=== PATIENT | male | born 1945 | race Caucasian/White ===

== ENCOUNTER 2017-11-28 15:34 | Inpatient (IN) | payer MEDICARE, MEDICAID ==
[~2017-11-28] VITALS: Ht 177.8 cm; Wt 111.4 kg
[~2017-11-28 15:34] MED LIST: ADV50250 IH; ALBU8HFA PO; HYDR-3968 PO
[2017-11-28] MEDS ORDERED: methylPREDNISolone sod succ 125mg/2ml vial IV ONE (15:50)
[2017-11-28] MEDS ORDERED: normal saline 1000ML IV soln IV ONE (15:50)
[2017-11-28 16:47] LABS: BASOPHILS % (AUTO) 0.3 % (0-1); EOSINOPHILS # (AUTO) 0.1 X10'3 (0-0.9); EOSINOPHILS % (AUTO) 0.9 % (0-6); HEMATOCRIT 44.9 % (42.0-52.0); HEMOGLOBIN 15.1 g/dl (14.0-17.9); LYMPHOCYTES # (AUTO) 1.4 X10'3 (1.1-4.8); LYMPHOCYTES % (AUTO) 18.4 % (21-51); MEAN CORPUSCULAR HEMOGLOBIN 31.3 PG (27.0-31.0); MEAN CORPUSCULAR HGB CONC 33.6 % (33.0-36.5); MEAN PLATELET VOLUME 7.9 FL (7.4-10.4); MONOCYTES # (AUTO) 1.2 X10'3 (0-0.9); MONOCYTES % (AUTO) 15.6 % (2-12); NEUTROPHILS % (AUTO) 64.8 % (42-75); PLATELET COUNT 324 X10'3 (140-440); RED BLOOD COUNT 4.83 X10'6 (4.70-6.10); RED CELL DISTRIBUTION WIDTH 15.6 % (11.5-14.5); WHITE BLOOD COUNT 7.7 X10'3 (4.5-11.0)
[2017-11-28 17:25] LABS: ANISOCYTOSIS 1+; PLATELET ESTIMATE NORMAL; TOTAL CELLS COUNTED 100
[2017-11-28] MEDS ORDERED: mag hydrox/Alum hydrox/simeth 30ml oral suspension PO PRN (17:35)
[2017-11-28] MEDS ORDERED: acetaminophen 325mg tablet PO PRN (17:35)
[2017-11-28] MEDS ORDERED: HYDROcodone/acetaminophen 5mg/325mg tablet PO PRN ×2 (17:35→21:05)
[2017-11-28] MEDS ORDERED: magnesium hydroxide 30ml (MOM) UD suspension PO PRN (17:35)
[2017-11-28] MEDS ORDERED: ondansetron/PF 4mg/2ml inj IV PRN (17:35)
[2017-11-28] MEDS: CefTRIAXone 1 gm/50ml D5W ADV 50 ML IV SCH (18:08)
[2017-11-28] MEDS: normal saline 1000ml 1,000 ML IV SCH (18:09)
[2017-11-28] MEDS: HYDROcodone/acetaminophen 10/325mg tab PO PRN (19:59)
[2017-11-28 20:45] VITALS: BP 146/90
[2017-11-28] MEDS ORDERED: non-formulary drug (Hydrocodone Bit/Acetaminophen (Hydrocodon-Acetaminoph 7.5-325) 1 TAB) PO SCH (20:50)
[2017-11-28] MEDS ORDERED: non-formulary drug (albuterol inhaler (Pro-Air Inhaler) 0 PUFFS) PO PRN (20:50)
[2017-11-28] MEDS ORDERED: temazepam 15mg capsule PO PRN (21:00)
[2017-11-28] MEDS: pantoprazole 40 MG vial IV SCH (23:14)
[2017-11-28] MEDS: enoxaparin 40mg/0.4ml syringe SUBCUT SCH (23:15)
[2017-11-29] VITALS: BP 151/86
[2017-11-29 04:59] LABS: BASOPHILS % (AUTO) 0.3 % (0-1); EOSINOPHILS % (AUTO) 0.2 % (0-6); HEMATOCRIT 45.3 % (42.0-52.0); HEMOGLOBIN 14.9 g/dl (14.0-17.9); LYMPHOCYTES # (AUTO) 0.5 X10'3 (1.1-4.8); LYMPHOCYTES % (AUTO) 12.3 % (21-51); MEAN CORPUSCULAR HEMOGLOBIN 30.8 PG (27.0-31.0); MEAN CORPUSCULAR HGB CONC 32.9 % (33.0-36.5); MEAN CORPUSCULAR VOLUME 93.5 FL (78-98); MEAN PLATELET VOLUME 8.1 FL (7.4-10.4); MONOCYTES # (AUTO) 0.1 X10'3 (0-0.9); MONOCYTES % (AUTO) 2.3 % (2-12); NEUTROPHILS # (AUTO) 3.8 X10'3 (1.8-7.7); NEUTROPHILS % (AUTO) 84.9 % (42-75); PLATELET COUNT 329 X10'3 (140-440); RED BLOOD COUNT 4.85 X10'6 (4.70-6.10); WHITE BLOOD COUNT 4.4 X10'3 (4.5-11.0)
[2017-11-29 05:04] LABS: INR 1.1 INR; PROTHROMBIN TIME 10.9 SECONDS (9.0-12.0)
[2017-11-29 05:14] LABS: ALANINE AMINOTRANSFERASE 40 U/L (12-78); ALBUMIN/GLOBULIN RATIO 0.8 (1.1-1.5); ALKALINE PHOSPHATASE 76 IU/L (46-116); ANION GAP 6 (8-16); ASPARTATE AMINO TRANSFERASE 37 U/L (10-37); BILIRUBIN,TOTAL 0.3 MG/DL (0.1-1.0); BLOOD UREA NITROGEN 11 MG/DL (7-18); BUN/CREATININE RATIO 14.7 (5.4-32.0); CALCIUM 8.7 MG/DL (8.5-10.1); CHLORIDE 104 MMOL/L (99-107); CHOL/HDL RATIO 3.4 (0.00-4.99); CHOLESTEROL 149 MG/DL (0-200); CREATININE 0.75 MG/DL (0.60-1.10); GLUCOSE 168 MG/DL (70-104); HDL CHOLESTEROL 44 MG/DL (35-60); LDL CHOLESTEROL 95 MG/DL (50-100); MAGNESIUM 1.8 MG/DL (1.5-2.4); SODIUM 143 MMOL/L (135-145); TOTAL CARBON DIOXIDE 32.6 MMOL/L (24-32); TRIGLYCERIDES 78 MG/DL (20-135); eGFR > 90 ML/MIN
[2017-11-29] MEDS: pantoprazole 40 MG vial IV SCH (07:13)
[2017-11-29] MEDS: levoFLOXACIN-Levaquin 750MG/D5 150 ML IV SCH (07:13)
[2017-11-29] MEDS: enoxaparin 40mg/0.4ml syringe SUBCUT SCH (07:14)
[2017-11-29] MEDS: HYDROcodone/acetaminophen 10/325mg tab PO PRN ×2 (07:15→15:08)
[2017-11-29 07:38] VITALS: BP 148/86
[2017-11-29] MEDS ORDERED: non-formulary drug (Fluticasone/Salmeterol* (Advair 250-50 Diskus*) 1 INH) IH SCH (08:00)
[2017-11-29] MEDS: CefTRIAXone 1 gm/50ml D5W ADV 50 ML IV SCH (09:19)
[2017-11-29 11:34] VITALS: BP 136/83
[2017-11-29] MEDS: albuterol 2.5 MG/3 ML nebule NEB PRN (19:52)
[2017-11-29 20:00] VITALS: BP 150/83
[2017-11-30] VITALS: BP 120/67
[2017-11-30] MEDS: HYDROcodone/acetaminophen 10/325mg tab PO PRN ×4 (03:24→22:31)
[2017-11-30 05:23] LABS: BASOPHILS % (AUTO) 0.6 % (0-1); EOSINOPHILS % (AUTO) 0.3 % (0-6); HEMATOCRIT 44.8 % (42.0-52.0); HEMOGLOBIN 14.9 g/dl (14.0-17.9); LYMPHOCYTES # (AUTO) 1.6 X10'3 (1.1-4.8); LYMPHOCYTES % (AUTO) 18.7 % (21-51); MEAN CORPUSCULAR HEMOGLOBIN 30.9 PG (27.0-31.0); MEAN CORPUSCULAR HGB CONC 33.3 % (33.0-36.5); MEAN CORPUSCULAR VOLUME 92.6 FL (78-98); MEAN PLATELET VOLUME 8.1 FL (7.4-10.4); MONOCYTES # (AUTO) 1.2 X10'3 (0-0.9); MONOCYTES % (AUTO) 13.2 % (2-12); NEUTROPHILS # (AUTO) 5.9 X10'3 (1.8-7.7); NEUTROPHILS % (AUTO) 67.2 % (42-75); PLATELET COUNT 358 X10'3 (140-440); RED BLOOD COUNT 4.84 X10'6 (4.70-6.10); RED CELL DISTRIBUTION WIDTH 15.6 % (11.5-14.5); WHITE BLOOD COUNT 8.8 X10'3 (4.5-11.0)
[2017-11-30 05:30] LABS: PROTHROMBIN TIME 10.8 SECONDS (9.0-12.0)
[2017-11-30 05:45] LABS: ALANINE AMINOTRANSFERASE 35 U/L (12-78); ALBUMIN 3.1 G/DL (3.4-5.0); ALBUMIN/GLOBULIN RATIO 0.8 (1.1-1.5); ALKALINE PHOSPHATASE 76 IU/L (46-116); ANION GAP 7 (8-16); ASPARTATE AMINO TRANSFERASE 27 U/L (10-37); BILIRUBIN,TOTAL 0.3 MG/DL (0.1-1.0); BLOOD UREA NITROGEN 17 MG/DL (7-18); BUN/CREATININE RATIO 22.7 (5.4-32.0); CALCIUM 9.2 MG/DL (8.5-10.1); CHLORIDE 101 MMOL/L (99-107); CREATININE 0.75 MG/DL (0.60-1.10); GLUCOSE 107 MG/DL (70-104); MAGNESIUM 1.8 MG/DL (1.5-2.4); POTASSIUM 4.5 MMOL/L (3.5-5.1); SODIUM 143 MMOL/L (135-145); TOTAL CARBON DIOXIDE 34.9 MMOL/L (24-32); eGFR > 90 ML/MIN
[2017-11-30 08:00] VITALS: BP 139/86
[2017-11-30] MEDS: pantoprazole 40mg Tablet.DR PO SCH (08:28)
[2017-11-30] MEDS: levoFLOXACIN-Levaquin 750MG/D5 150 ML IV SCH (08:28)
[2017-11-30] MEDS: enoxaparin 40mg/0.4ml syringe SUBCUT SCH (08:29)
[2017-11-30] MEDS: cefTRIAXone 1g/NS 100ml IVPB 100 ML IV SCH (11:15)
[2017-11-30 11:30] VITALS: BP 129/82
[2017-11-30] MEDS ORDERED: bacitracin 15gm ointment TP ONE (12:00)
[2017-11-30] MEDS: LORazepam 0.5 MG tablet PO PRN (15:44)
[2017-11-30] MEDS: albuterol 2.5 MG/3 ML nebule NEB PRN ×2 (15:44→19:35)
[2017-11-30] MEDS: lactobacillus rhamnosus 10,000 MMU CELLS/CAPSULE PO SCH (17:27)
[2017-11-30 20:00] VITALS: BP 149/90
[2017-11-30] MEDS: normal saline 1000ml 1,000 ML IV SCH (22:31)
[2017-12-01] VITALS: BP 114/69
[2017-12-01] MEDS: LORazepam 0.5 MG tablet PO PRN ×2 (03:56→12:22)
[2017-12-01 05:12] LABS: BASOPHILS # (AUTO) 0.1 X10'3 (0-0.2); BASOPHILS % (AUTO) 1.5 % (0-1); EOSINOPHILS # (AUTO) 0.1 X10'3 (0-0.9); EOSINOPHILS % (AUTO) 1.2 % (0-6); HEMATOCRIT 44.7 % (42.0-52.0); HEMOGLOBIN 15.1 g/dl (14.0-17.9); LYMPHOCYTES # (AUTO) 1.5 X10'3 (1.1-4.8); LYMPHOCYTES % (AUTO) 18.2 % (21-51); MEAN CORPUSCULAR HEMOGLOBIN 31.1 PG (27.0-31.0); MEAN CORPUSCULAR HGB CONC 33.7 % (33.0-36.5); MEAN CORPUSCULAR VOLUME 92.1 FL (78-98); MEAN PLATELET VOLUME 7.7 FL (7.4-10.4); MONOCYTES # (AUTO) 1.2 X10'3 (0-0.9); MONOCYTES % (AUTO) 14.3 % (2-12); NEUTROPHILS # (AUTO) 5.4 X10'3 (1.8-7.7); NEUTROPHILS % (AUTO) 64.8 % (42-75); PLATELET COUNT 354 X10'3 (140-440); RED BLOOD COUNT 4.85 X10'6 (4.70-6.10); WHITE BLOOD COUNT 8.4 X10'3 (4.5-11.0)
[2017-12-01 05:28] LABS: ALANINE AMINOTRANSFERASE 36 U/L (12-78); ALBUMIN 2.9 G/DL (3.4-5.0); ALBUMIN/GLOBULIN RATIO 0.8 (1.1-1.5); ALKALINE PHOSPHATASE 65 IU/L (46-116); ANION GAP 4 (8-16); ASPARTATE AMINO TRANSFERASE 21 U/L (10-37); BILIRUBIN,TOTAL 0.4 MG/DL (0.1-1.0); BLOOD UREA NITROGEN 16 MG/DL (7-18); BUN/CREATININE RATIO 21.9 (5.4-32.0); CALCIUM 8.3 MG/DL (8.5-10.1); CHLORIDE 100 MMOL/L (99-107); CREATININE 0.73 MG/DL (0.60-1.10); GLUCOSE 102 MG/DL (70-104); MAGNESIUM 1.7 MG/DL (1.5-2.4); POTASSIUM 3.8 MMOL/L (3.5-5.1); SODIUM 141 MMOL/L (135-145); TOTAL CARBON DIOXIDE 37.4 MMOL/L (24-32); TOTAL PROTEIN 6.4 G/DL (6.4-8.2); eGFR > 90 ML/MIN
[2017-12-01 05:44] LABS: INR 1.1 INR; PROTHROMBIN TIME 11.1 SECONDS (9.0-12.0)
[2017-12-01] MEDS: albuterol 2.5 MG/3 ML nebule NEB PRN (07:27)
[2017-12-01 07:54] VITALS: BP 140/97
[2017-12-01] MEDS: cefTRIAXone 1g/NS 100ml IVPB 100 ML IV SCH (08:27)
[2017-12-01] MEDS: pantoprazole 40mg Tablet.DR PO SCH (08:27)
[2017-12-01] MEDS: HYDROcodone/acetaminophen 10/325mg tab PO PRN ×4 (08:27→22:39)
[2017-12-01] MEDS: lactobacillus rhamnosus 10,000 MMU CELLS/CAPSULE PO SCH ×2 (08:27→16:27)
[2017-12-01] MEDS: enoxaparin 40mg/0.4ml syringe SUBCUT SCH (08:28)
[2017-12-01 12:12] VITALS: BP 142/95
[2017-12-01] MEDS: levoFLOXACIN 750MG TABLET PO SCH (12:22)
[2017-12-01 20:00] VITALS: BP 118/20
[2017-12-02] VITALS: BP 134/89
[2017-12-02] MEDS: HYDROcodone/acetaminophen 10/325mg tab PO PRN ×4 (04:26→21:38)
[2017-12-02 05:39] LABS: BASOPHILS # (AUTO) 0.1 X10'3 (0-0.2); BASOPHILS % (AUTO) 0.6 % (0-1); EOSINOPHILS # (AUTO) 0.1 X10'3 (0-0.9); EOSINOPHILS % (AUTO) 1.5 % (0-6); HEMATOCRIT 48.8 % (42.0-52.0); LYMPHOCYTES # (AUTO) 1.3 X10'3 (1.1-4.8); LYMPHOCYTES % (AUTO) 15.1 % (21-51); MEAN CORPUSCULAR HEMOGLOBIN 30.7 PG (27.0-31.0); MEAN CORPUSCULAR HGB CONC 32.8 % (33.0-36.5); MEAN CORPUSCULAR VOLUME 93.6 FL (78-98); MEAN PLATELET VOLUME 7.9 FL (7.4-10.4); MONOCYTES # (AUTO) 1.4 X10'3 (0-0.9); MONOCYTES % (AUTO) 16.5 % (2-12); NEUTROPHILS # (AUTO) 5.8 X10'3 (1.8-7.7); NEUTROPHILS % (AUTO) 66.3 % (42-75); PLATELET COUNT 361 X10'3 (140-440); RED BLOOD COUNT 5.21 X10'6 (4.70-6.10); RED CELL DISTRIBUTION WIDTH 15.6 % (11.5-14.5); WHITE BLOOD COUNT 8.8 X10'3 (4.5-11.0)
[2017-12-02 05:47] LABS: INR 1.1 INR; PROTHROMBIN TIME 11.2 SECONDS (9.0-12.0)
[2017-12-02 06:03] LABS: ALANINE AMINOTRANSFERASE 36 U/L (12-78); ALBUMIN 2.9 G/DL (3.4-5.0); ALBUMIN/GLOBULIN RATIO 0.8 (1.1-1.5); ALKALINE PHOSPHATASE 65 IU/L (46-116); ANION GAP 3 (8-16); ASPARTATE AMINO TRANSFERASE 22 U/L (10-37); BILIRUBIN,TOTAL 0.5 MG/DL (0.1-1.0); BLOOD UREA NITROGEN 16 MG/DL (7-18); BUN/CREATININE RATIO 24.2 (5.4-32.0); CALCIUM 8.7 MG/DL (8.5-10.1); CHLORIDE 100 MMOL/L (99-107); CREATININE 0.66 MG/DL (0.60-1.10); GLUCOSE 115 MG/DL (70-104); MAGNESIUM 1.9 MG/DL (1.5-2.4); POTASSIUM 3.9 MMOL/L (3.5-5.1); SODIUM 139 MMOL/L (135-145); TOTAL CARBON DIOXIDE 35.9 MMOL/L (24-32); TOTAL PROTEIN 6.6 G/DL (6.4-8.2); eGFR > 90 ML/MIN
[2017-12-02 08:02] VITALS: BP 136/80
[2017-12-02] MEDS: pantoprazole 40mg Tablet.DR PO SCH (09:09)
[2017-12-02] MEDS: lactobacillus rhamnosus 10,000 MMU CELLS/CAPSULE PO SCH ×2 (09:09→16:40)
[2017-12-02] MEDS: cefTRIAXone 1g/NS 100ml IVPB 100 ML IV SCH (09:10)
[2017-12-02] MEDS: enoxaparin 40mg/0.4ml syringe SUBCUT SCH (09:10)
[2017-12-02] MEDS: levoFLOXACIN 750MG TABLET PO SCH (10:43)
[2017-12-02] MEDS: vancomycin/NS 1 GM ADD-VANTAGE 250 ML IV SCH ×2 (10:43→12:44)
[2017-12-02 11:30] VITALS: BP 110/73
[2017-12-02] MEDS: normal saline 1000ml 1,000 ML IV SCH (17:26)
[2017-12-02 20:00] VITALS: BP 128/81
[2017-12-03] VITALS: BP 119/79
[2017-12-03] MEDS: HYDROcodone/acetaminophen 10/325mg tab PO PRN ×3 (02:56→19:38)
[2017-12-03 05:53] LABS: BASOPHILS % (AUTO) 0.3 % (0-1); EOSINOPHILS # (AUTO) 0.2 X10'3 (0-0.9); EOSINOPHILS % (AUTO) 1.7 % (0-6); HEMATOCRIT 46.1 % (42.0-52.0); HEMOGLOBIN 15.5 g/dl (14.0-17.9); LYMPHOCYTES # (AUTO) 1.2 X10'3 (1.1-4.8); MEAN CORPUSCULAR HEMOGLOBIN 30.7 PG (27.0-31.0); MEAN CORPUSCULAR HGB CONC 33.6 % (33.0-36.5); MEAN CORPUSCULAR VOLUME 91.4 FL (78-98); MEAN PLATELET VOLUME 7.5 FL (7.4-10.4); MONOCYTES # (AUTO) 1.5 X10'3 (0-0.9); MONOCYTES % (AUTO) 15.3 % (2-12); NEUTROPHILS # (AUTO) 7.1 X10'3 (1.8-7.7); NEUTROPHILS % (AUTO) 70.7 % (42-75); PLATELET COUNT 369 X10'3 (140-440); RED BLOOD COUNT 5.04 X10'6 (4.70-6.10); RED CELL DISTRIBUTION WIDTH 15.6 % (11.5-14.5)
[2017-12-03 06:07] LABS: INR 1.1 INR; PROTHROMBIN TIME 11.1 SECONDS (9.0-12.0)
[2017-12-03 06:38] LABS: ALANINE AMINOTRANSFERASE 32 U/L (12-78); ALBUMIN 2.7 G/DL (3.4-5.0); ALBUMIN/GLOBULIN RATIO 0.8 (1.1-1.5); ALKALINE PHOSPHATASE 62 IU/L (46-116); ANION GAP 7 (8-16); ASPARTATE AMINO TRANSFERASE 19 U/L (10-37); BILIRUBIN,TOTAL 0.5 MG/DL (0.1-1.0); BLOOD UREA NITROGEN 15 MG/DL (7-18); BUN/CREATININE RATIO 20.5 (5.4-32.0); CALCIUM 8.4 MG/DL (8.5-10.1); CHLORIDE 101 MMOL/L (99-107); CREATININE 0.73 MG/DL (0.60-1.10); GLUCOSE 103 MG/DL (70-104); MAGNESIUM 1.7 MG/DL (1.5-2.4); POTASSIUM 4.2 MMOL/L (3.5-5.1); SODIUM 140 MMOL/L (135-145); TOTAL CARBON DIOXIDE 32.4 MMOL/L (24-32); TOTAL PROTEIN 6.2 G/DL (6.4-8.2); eGFR > 90 ML/MIN
[2017-12-03 07:12] VITALS: BP 114/72
[2017-12-03] MEDS: albuterol 2.5 MG/3 ML nebule NEB PRN ×2 (07:32→19:03)
[2017-12-03] MEDS: pantoprazole 40mg Tablet.DR PO SCH (07:56)
[2017-12-03] MEDS: lactobacillus rhamnosus 10,000 MMU CELLS/CAPSULE PO SCH ×2 (07:56→19:38)
[2017-12-03] MEDS: enoxaparin 40mg/0.4ml syringe SUBCUT SCH (07:58)
[2017-12-03] MEDS: levoFLOXACIN 750MG TABLET PO SCH (10:08)
[2017-12-03] MEDS: cefTRIAXone 1g/NS 100ml IVPB 100 ML IV SCH (10:09)
[2017-12-03] MEDS ORDERED: VANCOMYCIN LEVEL IV ONE (10:30)
[2017-12-03 11:35] VITALS: BP 105/53
[2017-12-03 20:08] VITALS: BP 115/54
[2017-12-04] VITALS: BP 138/77
[2017-12-04] MEDS: HYDROcodone/acetaminophen 10/325mg tab PO PRN ×4 (02:24→23:17)
[2017-12-04 07:22] VITALS: BP 122/81
[2017-12-04] MEDS: pantoprazole 40mg Tablet.DR PO SCH (07:42)
[2017-12-04] MEDS: lactobacillus rhamnosus 10,000 MMU CELLS/CAPSULE PO SCH ×2 (07:42→17:37)
[2017-12-04] MEDS: cefTRIAXone 1g/NS 100ml IVPB 100 ML IV SCH (07:43)
[2017-12-04] MEDS: enoxaparin 40mg/0.4ml syringe SUBCUT SCH (07:44)
[2017-12-04 11:00] VITALS: BP 136/72
[2017-12-04] MEDS: levoFLOXACIN 750MG TABLET PO SCH (12:37)
[2017-12-04] MEDS ORDERED: LINE600T36 PO (15:55)
[2017-12-04] MEDS ORDERED: lactobacillus rhamnosus 10,000 MMU CELLS/CAPSULE PO SCH (17:30)
[2017-12-04] MEDS: normal saline 1000ml 1,000 ML IV SCH (17:32)
[2017-12-04 18:30] VITALS: BP 111/60
[2017-12-04 23:00] VITALS: BP 119/68
[2017-12-05] MEDS: HYDROcodone/acetaminophen 10/325mg tab PO PRN ×3 (05:04→15:39)
[2017-12-05 07:30] VITALS: BP 129/66
[2017-12-05] MEDS: lactobacillus rhamnosus 10,000 MMU CELLS/CAPSULE PO SCH (08:14)
[2017-12-05] MEDS: pantoprazole 40mg Tablet.DR PO SCH (08:14)
[2017-12-05] MEDS: cefTRIAXone 1g/NS 100ml IVPB 100 ML IV SCH (08:16)
[2017-12-05] MEDS: enoxaparin 40mg/0.4ml syringe SUBCUT SCH (08:16)
[2017-12-05] MEDS: levoFLOXACIN 750MG TABLET PO SCH (11:15)
[2017-12-05 11:52] VITALS: BP 131/72
[2017-12-05] MEDS ORDERED: LACT1CAP26 PO (15:00)
[2017-12-05] MEDS ORDERED: PRED10TA23 PO (15:04)
[2017-12-05] MEDS ORDERED: predniSONE 20 mg tablet PO ONE (15:15)
== END 2017-12-05 16:48 | disposition home or self-care (01) | DRG 177 ==
LOC: ER 15:35 → ED HOLD 17:32 → SUR 3N 21:00
PROVIDERS: ADMIT Family Medicine; ATTEND Family Medicine
DX: J15.212 Pneumonia due to Methicillin resistant Staphylococcus aureus (principal); J96.01 Acute respiratory failure with hypoxia; J44.1 Chronic obstructive pulmonary disease with (acute) exacerbation; J44.0 Chronic obstructive pulmonary disease with (acute) lower respiratory infection; E66.9 Obesity, unspecified; G47.9 Sleep disorder, unspecified; I48.91 Unspecified atrial fibrillation; F41.9 Anxiety disorder, unspecified; Z99.81 Dependence on supplemental oxygen; Z88.6 Allergy status to analgesic agent; Z79.01 Long term (current) use of anticoagulants; Z87.891 Personal history of nicotine dependence; Z68.35 Body mass index [BMI] 35.0-35.9, adult
CPT/HCPCS: 36415; 71045; 80053; 80061; 80202; 83605; 83735; 83880; 84484; 85025; 85610; 87040; 87070; 87077; 87186; 92616; 93005; 93306; 94640; 94760; 96361; 96374; 97116; 99285; A6258; C9113; J0696; J1650; J1956; J2405; J2930; J3370; J7030; J7512

== ENCOUNTER 2018-07-11 11:59 | Inpatient (IN) | payer MEDICARE, MEDICAID ==
[~2018-07-11] VITALS: Ht 177.8 cm; Wt 132.6 kg
[~2018-07-11 11:59] MED LIST changes: +LACT1CAP26 PO
[2018-07-11] MEDS ORDERED: albuterol 2.5 MG/3 ML nebule CONTNEB PRN (12:30)
[2018-07-11] MEDS ORDERED: levoFLOXACIN-Levaquin 750MG/D5 150 ML IV ONE (12:30)
[2018-07-11 12:56] LABS: BASOPHILS % (AUTO) 0.3 % (0-1); EOSINOPHILS # (AUTO) 0.7 X10'3 (0-0.9); EOSINOPHILS % (AUTO) 9.4 % (0-6); HEMATOCRIT 42.3 % (42.0-52.0); HEMOGLOBIN 13.9 g/dl (14.0-17.9); LYMPHOCYTES # (AUTO) 0.7 X10'3 (1.1-4.8); LYMPHOCYTES % (AUTO) 9.9 % (21-51); MEAN CORPUSCULAR HEMOGLOBIN 31.4 PG (27.0-31.0); MEAN CORPUSCULAR HGB CONC 32.8 % (33.0-36.5); MEAN CORPUSCULAR VOLUME 95.7 FL (78-98); MEAN PLATELET VOLUME 7.9 FL (7.4-10.4); MONOCYTES # (AUTO) 0.8 X10'3 (0-0.9); MONOCYTES % (AUTO) 10.4 % (2-12); NEUTROPHILS # (AUTO) 5.3 X10'3 (1.8-7.7); PLATELET COUNT 258 X10'3 (140-440); RED BLOOD COUNT 4.43 X10'6 (4.70-6.10); RED CELL DISTRIBUTION WIDTH 15.6 % (11.5-14.5); WHITE BLOOD COUNT 7.5 X10'3 (4.5-11.0)
[2018-07-11 13:07] LABS: INR 1.1 INR; PARTIAL THROMBOPLASTIN TIME 28 SECONDS (22-32); PROTHROMBIN TIME 11.4 SECONDS (9.0-12.0)
[2018-07-11 13:12] LABS: ALANINE AMINOTRANSFERASE 35 U/L (12-78); ALBUMIN 3.3 G/DL (3.4-5.0); ALBUMIN/GLOBULIN RATIO 0.9 (1.1-1.5); ALKALINE PHOSPHATASE 87 IU/L (46-116); ANION GAP 6 (8-16); ASPARTATE AMINO TRANSFERASE 34 U/L (10-37); BILIRUBIN,TOTAL 0.4 MG/DL (0.1-1.0); BLOOD UREA NITROGEN 15 MG/DL (7-18); BUN/CREATININE RATIO 20.5 (5.4-32.0); CALCIUM 8.6 MG/DL (8.5-10.1); CHLORIDE 100 MMOL/L (99-107); CREATININE 0.73 MG/DL (0.60-1.10); GLUCOSE 103 MG/DL (70-104); POTASSIUM 4.3 MMOL/L (3.5-5.1); SODIUM 141 MMOL/L (135-145); TOTAL CARBON DIOXIDE 34.7 MMOL/L (24-32); TOTAL PROTEIN 6.8 G/DL (6.4-8.2); eGFR > 90 ML/MIN
[2018-07-11 13:18] LABS: MAGNESIUM 1.9 MG/DL (1.5-2.4)
[2018-07-11 13:30] LABS: ABG BASE EXCESS 8.7 mmol/L (-2.0-3.0); ABG HCO3 36.8 mmol/L (22.0-26.0); ABG OXYGEN SATURATION 94.1 % (95-98); ABG PH (T) 7.358 (7.350-7.450); ABG PO2 (T) 71.8 mmHg (83-108); FCOHb 3.1 % (0.5-1.5); FLOW 4 L/min; FMetHb 0.3 % (0.3-1.12); FO2Hb 90.9 % (94-100); TOTAL HEMOGLOBIN 14.2 G/dl (14.0-18.0)
[2018-07-11] MEDS ORDERED: furosemide 40mg/4ml inj IV ONE (13:35)
[2018-07-11 14:44] LABS: CLARITY,URINE CLEAR (Clear); COLOR,URINE YELLOW (Yellow); GLUCOSE, URINE NEGATIVE (Neg); KETONES,URINE NEGATIVE (Neg); LEUKOCYTE ESTERASE ,URINE NEGATIVE (Neg); NITRITES, URINE NEGATIVE (Neg); OCCULT BLOOD,URINE NEGATIVE (Neg); PROTEIN,URINE NEGATIVE (Neg); UROBILINOGEN,URINE 0.2 E.U/dL (0.2-1.0)
[2018-07-11 15:00] LABS: UA COLLECTION TYPE VOIDED
[2018-07-11] MEDS ORDERED: ipratropium/albuterol 3ml nebule NEB PRN (15:25)
[2018-07-11] MEDS ORDERED: ondansetron/PF 4mg/2ml inj IV PRN (15:25)
[2018-07-11] MEDS ORDERED: potassium Cl 20 mEq SR tablet PO PRN ×2 (15:25)
[2018-07-11] MEDS ORDERED: magnesium Cl slow-release 64mg tablet PO PRN (15:25)
[2018-07-11] MEDS ORDERED: magnesium 4gm in 100ml NS 100 ML IV PRN (15:25)
[2018-07-11] MEDS ORDERED: magnesium 1gm/100ml D5W IVPB 100 ML IV PRN (15:25)
[2018-07-11] MEDS ORDERED: magnesium hydroxide 30ml (MOM) UD suspension PO PRN (15:25)
[2018-07-11] MEDS ORDERED: acetaminophen 325mg tablet PO PRN ×2 (15:25)
[2018-07-11] MEDS ORDERED: mag hydrox/Alum hydrox/simeth 30ml oral suspension PO PRN (15:25)
[2018-07-11] MEDS ORDERED: potassium Cl 40MEQ/NS 500ml 500 ML IV PRN ×2 (15:25)
[2018-07-11] MEDS ORDERED: TIOT18CA3 INH (15:31)
[2018-07-11] MEDS ORDERED: LYR75C PO (15:31)
[2018-07-11] MEDS: CefTRIAXone/D5W-Rocephin 1gm 50 ML IV SCH (16:59)
[2018-07-11] MEDS: enoxaparin 40mg/0.4ml syringe SUBCUT SCH (17:00)
[2018-07-11] MEDS ORDERED: CefTRIAXone/D5W-Rocephin 1gm 50 ML IV ONE (17:00)
[2018-07-11] MEDS ORDERED: enoxaparin 40mg/0.4ml syringe SUBCUT ONE (17:05)
[2018-07-11 17:50] VITALS: BP 161/103
[2018-07-11 19:00] VITALS: BP 150/95
[2018-07-11] MEDS: ipratropium/albuterol 3ml nebule NEB SCH (19:45)
[2018-07-11] MEDS: furosemide 40mg/4ml inj IV SCH (19:49)
[2018-07-11] MEDS: temazepam 15mg capsule PO PRN (22:25)
[2018-07-11 23:00] VITALS: BP 127/67
[2018-07-12 03:00] VITALS: BP 123/69
[2018-07-12 06:04] LABS: ALBUMIN 3.3 G/DL (3.4-5.0); ANION GAP 0 (8-16); BLOOD UREA NITROGEN 14 MG/DL (7-18); BUN/CREATININE RATIO 16.9 (5.4-32.0); CALCIUM 9.2 MG/DL (8.5-10.1); CHLORIDE 100 MMOL/L (99-107); CHOL/HDL RATIO 2.6 (0.00-4.99); CHOLESTEROL 135 MG/DL (0-200); CREATININE 0.83 MG/DL (0.60-1.10); GLUCOSE 116 MG/DL (70-104); HDL CHOLESTEROL 51 MG/DL (35-60); LDL CHOLESTEROL 72 MG/DL (50-100); MAGNESIUM 2.1 MG/DL (1.5-2.4); POTASSIUM 5.1 MMOL/L (3.5-5.1); SODIUM 142 MMOL/L (135-145); TRIGLYCERIDES 99 MG/DL (20-135); TROPONIN I 0.06 NG/ML (0.0-0.05); eGFR > 90 ML/MIN
[2018-07-12 06:07] LABS: HEMOGLOBIN 13.7 g/dl (14.0-17.9); MEAN CORPUSCULAR HGB CONC 31.8 % (33.0-36.5); MEAN CORPUSCULAR VOLUME 94.2 FL (78-98); MEAN PLATELET VOLUME 8.3 FL (7.4-10.4); PLATELET COUNT 258 X10'3 (140-440); RED BLOOD COUNT 4.57 X10'6 (4.70-6.10); RED CELL DISTRIBUTION WIDTH 15.1 % (11.5-14.5); WHITE BLOOD COUNT 7.9 X10'3 (4.5-11.0)
[2018-07-12 06:54] LABS: TOTAL CARBON DIOXIDE 41.7 MMOL/L (24-32)
[2018-07-12 07:00] VITALS: BP 144/84
[2018-07-12] MEDS: ipratropium/albuterol 3ml nebule NEB SCH ×5 (07:00→23:00)
[2018-07-12] MEDS: K and/or MAG REPLACEMENT MC SCH (08:00)
[2018-07-12] MEDS: enoxaparin 40mg/0.4ml syringe SUBCUT SCH (08:38)
[2018-07-12] MEDS: pregabalin 75mg capsule PO SCH (08:38)
[2018-07-12] MEDS: aspirin 81mg tablet.DR PO SCH (08:38)
[2018-07-12] MEDS: furosemide 40mg/4ml inj IV SCH ×2 (08:39→20:00)
[2018-07-12] MEDS: CefTRIAXone/D5W-Rocephin 1gm 50 ML IV SCH (08:39)
[2018-07-12 11:54] VITALS: BP 151/98
[2018-07-12] MEDS: LORazepam 2 mg/ml vial IV PRN (13:29)
[2018-07-12 15:00] VITALS: BP 136/72
[2018-07-12 18:00] VITALS: BP 140/69
[2018-07-12] MEDS: methylPREDNISolone sod succ 125mg/2ml vial IV SCH (19:11)
[2018-07-12] MEDS: temazepam 15mg capsule PO PRN (21:56)
[2018-07-12 22:00] VITALS: BP 109/76
[2018-07-13] MEDS: LORazepam 2 mg/ml vial IV PRN ×2 (00:30→05:31)
[2018-07-13 02:00] VITALS: BP 147/87
[2018-07-13] MEDS: methylPREDNISolone sod succ 125mg/2ml vial IV SCH ×2 (02:09→08:00)
[2018-07-13 05:09] LABS: HEMATOCRIT 47.6 % (42.0-52.0); HEMOGLOBIN 15.4 g/dl (14.0-17.9); MEAN CORPUSCULAR HEMOGLOBIN 30.7 PG (27.0-31.0); MEAN CORPUSCULAR HGB CONC 32.2 % (33.0-36.5); MEAN CORPUSCULAR VOLUME 95.3 FL (78-98); MEAN PLATELET VOLUME 8.4 FL (7.4-10.4); PLATELET COUNT 283 X10'3 (140-440); RED CELL DISTRIBUTION WIDTH 15.3 % (11.5-14.5); WHITE BLOOD COUNT 6.2 X10'3 (4.5-11.0)
[2018-07-13 05:32] LABS: ALBUMIN 3.6 G/DL (3.4-5.0); ANION GAP 4 (8-16); BLOOD UREA NITROGEN 18 MG/DL (7-18); BUN/CREATININE RATIO 25.7 (5.4-32.0); CALCIUM 8.8 MG/DL (8.5-10.1); CHLORIDE 99 MMOL/L (99-107); GLUCOSE 167 MG/DL (70-104); MAGNESIUM 2.2 MG/DL (1.5-2.4); POTASSIUM 4.8 MMOL/L (3.5-5.1); SODIUM 140 MMOL/L (135-145); TOTAL CARBON DIOXIDE 37.4 MMOL/L (24-32); eGFR > 90 ML/MIN
[2018-07-13 07:13] VITALS: BP 137/91
[2018-07-13] MEDS: aspirin 81mg tablet.DR PO SCH (08:00)
[2018-07-13] MEDS: K and/or MAG REPLACEMENT MC SCH (08:00)
[2018-07-13] MEDS: furosemide 40mg/4ml inj IV SCH (08:00)
[2018-07-13] MEDS ORDERED: nicotine 21mg patch - 24 hr TD SCH (08:00)
[2018-07-13] MEDS: pregabalin 75mg capsule PO SCH (08:00)
[2018-07-13] MEDS: CefTRIAXone/D5W-Rocephin 1gm 50 ML IV SCH (08:00)
[2018-07-13] MEDS: enoxaparin 40mg/0.4ml syringe SUBCUT SCH (08:01)
[2018-07-13] MEDS: ipratropium/albuterol 3ml nebule NEB SCH ×2 (08:05→11:37)
[2018-07-13 11:34] VITALS: BP 149/101
[2018-07-13] MEDS ORDERED: AZI25OT PO (11:41)
[2018-07-13] MEDS ORDERED: FURO-150 PO (11:41)
[2018-07-13] MEDS ORDERED: METO25TA6 PO (15:37)
[2018-07-13] MEDS ORDERED: LISI-604 PO (15:37)
== END 2018-07-13 14:10 | disposition home or self-care (01) | DRG 291 ==
LOC: ER 11:59 → OBSVTOIN 15:23 → ED HOLD 15:23 → PCU 3S 17:29
PROVIDERS: ADMIT Family Medicine; ATTEND Internal Medicine
PROC: BW211ZZ Computerized Tomography (CT Scan) of Abdomen and Pelvis using Low Osmolar Contrast (ICD-10-PCS; principal; 2018-07-11)
DX: I50.23 Acute on chronic systolic (congestive) heart failure (principal); J96.21 Acute and chronic respiratory failure with hypoxia; J44.1 Chronic obstructive pulmonary disease with (acute) exacerbation; Z68.41 Body mass index [BMI] 40.0-44.9, adult; E87.2 Acidosis; E66.9 Obesity, unspecified; F17.210 Nicotine dependence, cigarettes, uncomplicated; I71.4 Abdominal aortic aneurysm, without rupture; Z99.81 Dependence on supplemental oxygen; Z90.49 Acquired absence of other specified parts of digestive tract; Z88.6 Allergy status to analgesic agent; Z79.899 Other long term (current) drug therapy; Z71.6 Tobacco abuse counseling
CPT/HCPCS: 36415; 36600; 71045; 74176; 80048; 80053; 80061; 81003; 82803; 83605; 83735; 83880; 84145; 84484; 85018; 85025; 85027; 85610; 85730; 87040; 87070; 93005; 93306; 94640; 94644; 94760; 96365; 96375; 97110; 97116; 97161; 97530; 99285; A4315; A4620; A6212; J0696; J1650; J1940; J1956; J2060; J2930; J7030

== ENCOUNTER 2018-07-31 11:32 | Emergency (ER) | payer MEDICARE, MEDICAID ==
[~2018-07-31] VITALS: Ht 177.8 cm; Wt 127.0 kg
[~2018-07-31 11:32] MED LIST changes: +AZI25OT PO; +FURO-150 PO; -LACT1CAP26 PO; +LISI-604 PO; +LYR75C PO; +METO25TA6 PO; +TIOT18CA3 INH
[2018-07-31] MEDS ORDERED: normal saline 1000ML IV soln IVB ONE (11:55)
[2018-07-31] MEDS: morphine 2 MG/ML inj. syringe IV PRN ×2 (12:01→12:25)
[2018-07-31] MEDS ORDERED: adenosine 3mg/ml 2ml vial IV ONE ×2 (12:10)
[2018-07-31 12:11] LABS: BASOPHILS % (AUTO) 0.2 % (0-1); EOSINOPHILS % (AUTO) 0.2 % (0-6); HEMATOCRIT 46.8 % (42.0-52.0); HEMOGLOBIN 15.2 g/dl (14.0-17.9); LYMPHOCYTES # (AUTO) 0.8 X10'3 (1.1-4.8); MEAN CORPUSCULAR HEMOGLOBIN 30.8 PG (27.0-31.0); MEAN CORPUSCULAR HGB CONC 32.5 % (33.0-36.5); MEAN CORPUSCULAR VOLUME 94.7 FL (78-98); MEAN PLATELET VOLUME 8.4 FL (7.4-10.4); MONOCYTES # (AUTO) 0.9 X10'3 (0-0.9); MONOCYTES % (AUTO) 7.7 % (2-12); NEUTROPHILS # (AUTO) 10.2 X10'3 (1.8-7.7); NEUTROPHILS % (AUTO) 84.9 % (42-75); PLATELET COUNT 301 X10'3 (140-440); RED BLOOD COUNT 4.94 X10'6 (4.70-6.10); RED CELL DISTRIBUTION WIDTH 14.9 % (11.5-14.5)
[2018-07-31 12:14] LABS: INR 1.1 INR; PARTIAL THROMBOPLASTIN TIME 30 SECONDS (22-32); PROTHROMBIN TIME 11.5 SECONDS (9.0-12.0)
[2018-07-31 12:17] LABS: ALANINE AMINOTRANSFERASE 33 U/L (12-78); ALBUMIN 3.6 G/DL (3.4-5.0); ALBUMIN/GLOBULIN RATIO 0.9 (1.1-1.5); ALKALINE PHOSPHATASE 87 IU/L (46-116); ANION GAP 7 (8-16); ASPARTATE AMINO TRANSFERASE 43 U/L (10-37); BILIRUBIN,TOTAL 0.8 MG/DL (0.1-1.0); BLOOD UREA NITROGEN 23 MG/DL (7-18); BUN/CREATININE RATIO 17.6 (5.4-32.0); CALCIUM 9.3 MG/DL (8.5-10.1); CHLORIDE 99 MMOL/L (99-107); CREATININE 1.31 MG/DL (0.60-1.10); GLUCOSE 121 MG/DL (70-104); POTASSIUM 4.7 MMOL/L (3.5-5.1); SODIUM 138 MMOL/L (135-145); TOTAL CARBON DIOXIDE 31.8 MMOL/L (24-32); TOTAL PROTEIN 7.5 G/DL (6.4-8.2); eGFR 54 ML/MIN
[2018-07-31] MEDS ORDERED: aspirin 81mg tab.chew PO ONE (12:45)
[2018-07-31] MEDS ORDERED: bacitracin 15gm ointment TP ONE (13:05)
[2018-07-31] MEDS ORDERED: nitroGLYCERIN 0.4mg/hour patch TD ONE (13:50)
[2018-07-31 15:29] VITALS: BP 143/67
== END 2018-07-31 15:32 | disposition short-term general hospital (02) ==
LOC: ER 11:32
DX: T20.24XA Burn of second degree of nose (septum), initial encounter (principal); T28.0XXA Burn of mouth and pharynx, initial encounter; T23.202A Burn of second degree of left hand, unspecified site, initial encounter; T24.222A Burn of second degree of left knee, initial encounter; T24.212A Burn of second degree of left thigh, initial encounter; T24.202A Burn of second degree of unspecified site of left lower limb, except ankle and foot, initial encounter; I47.1 Supraventricular tachycardia; R79.89 Other specified abnormal findings of blood chemistry; F17.210 Nicotine dependence, cigarettes, uncomplicated; J44.9 Chronic obstructive pulmonary disease, unspecified; Z90.89 Acquired absence of other organs; Z88.6 Allergy status to analgesic agent; Z79.899 Other long term (current) drug therapy; X08.8XXA Exposure to other specified smoke, fire and flames, initial encounter; Y93.89 Activity, other specified; Y92.89 Other specified places as the place of occurrence of the external cause; Y99.9 Unspecified external cause status
CPT/HCPCS: 16020; 36415; 71045; 80053; 84484; 85025; 85610; 85730; 93005; 96374; 96375; 99285; J0153; J2270

== ENCOUNTER 2022-09-17 12:29 | Emergency (ER) | payer MEDICARE, MEDICAID ==
[~2022-09-17] VITALS: Ht 177.8 cm; Wt 102.0 kg
[~2022-09-17 12:29] MED LIST changes: -ADV50250 IH; -ALBU8HFA PO; +AMIO200T27 PO; +APIX5TAB3 PO; -AZI25OT PO; +FLUT1BLS3 IH; +FLUT1DIS20 INH; -FURO-150 PO; +IPRA3AMP9 NEB; -LISI-604 PO; -LYR75C PO; +METO100T14 PO; -METO25TA6 PO; +POTA8CAP20 PO; +PRED10TA PO; +SENN15TA4 PO; +SIME125C43 PO; -TIOT18CA3 INH
[2022-09-17 13:29] LABS: BASOPHILS # (AUTO) 0.1 X10'3 (0-0.2); BASOPHILS % (AUTO) 0.8 % (0-1); EOSINOPHILS # (AUTO) 0.2 X10'3 (0-0.9); EOSINOPHILS % (AUTO) 2.5 % (0-6); HEMATOCRIT 48.2 % (42.0-52.0); HEMOGLOBIN 15.6 g/dl (14.0-17.9); LYMPHOCYTES % (AUTO) 15.7 % (21-51); MEAN CORPUSCULAR HGB CONC 32.3 g/dL (33.0-36.5); MEAN CORPUSCULAR VOLUME 99.1 FL (78-98); MEAN PLATELET VOLUME 8.4 FL (7.4-10.4); MONOCYTES % (AUTO) 15.6 % (2-12); NEUTROPHILS # (AUTO) 4.3 X10'3 (1.8-7.7); NEUTROPHILS % (AUTO) 65.4 % (42-75); PLATELET COUNT 190 X10'3 (140-440); RED BLOOD COUNT 4.86 X10'6 (4.70-6.10); RED CELL DISTRIBUTION WIDTH 15.8 % (11.5-14.5); WHITE BLOOD COUNT 6.6 X10'3 (4.5-11.0)
[2022-09-17 13:40] LABS: CLARITY,URINE CLEAR (Clear); COLOR,URINE YELLOW (Yellow); GLUCOSE, URINE NEGATIVE (Neg); KETONES,URINE NEGATIVE (Neg); LEUKOCYTE ESTERASE ,URINE NEGATIVE (Neg); NITRITES, URINE NEGATIVE (Neg); OCCULT BLOOD,URINE TRACE-INTACT (Neg); PH,URINE 6.5 (4.8-8.0); PROTEIN,URINE NEGATIVE (Neg); UROBILINOGEN,URINE 0.2 E.U/dL (0.2-1.0)
[2022-09-17 13:44] LABS: ALANINE AMINOTRANSFERASE 29 U/L (12-78); ALBUMIN 3.5 G/DL (3.4-5.0); ALBUMIN/GLOBULIN RATIO 0.9 (1.1-1.5); ALKALINE PHOSPHATASE 100 IU/L (46-116); ANION GAP -2 (8-16); ASPARTATE AMINO TRANSFERASE 35 U/L (10-37); BILIRUBIN,TOTAL 0.6 MG/DL (0.1-1.0); BLOOD UREA NITROGEN 18 MG/DL (7-18); BUN/CREATININE RATIO 23.1 (5.4-32.0); CALCIUM 9.1 MG/DL (8.5-10.1); CHLORIDE 98 MMOL/L (99-107); CREATININE 0.78 MG/DL (0.60-1.10); GLUCOSE 84 MG/DL (70-104); LIPASE < 50 U/L (73-393); POTASSIUM 4.6 MMOL/L (3.5-5.1); SODIUM 138 MMOL/L (135-145); TOTAL PROTEIN 7.4 G/DL (6.4-8.2); eGFR > 90 ML/MIN
[2022-09-17 13:46] LABS: UA COLLECTION TYPE VOIDED
[2022-09-17 13:47] LABS: BACTERIA,URINE FEW /HPF (Neg); MUCUS STRANDS FEW /LPF (Neg); RBC,URINE 0-2 /HPF (0-2); SQUAMOUS EPITHELIAL CELL,UR FEW /LPF (FEW); WBC,URINE 0-4 /HPF (0-4)
[2022-09-17 14:03] LABS: TOTAL CARBON DIOXIDE 42.2 MMOL/L (24-32)
--- NOTE | 2022-09-17 14:03 | NUR ---
CO2 [address].2 [address] MARADIAGA UPDATED
[2022-09-17 15:53] LABS: PLATELET ESTIMATE NORMAL; TOTAL CELLS COUNTED 100
[2022-09-17 15:54] LABS: STOMATOCYTES 1+
--- NOTE | 2022-09-17 19:14 | NUR ---
Jewel moeleandra in EDM - 09/17/22 at 1918 by HUSSEIN PT BROUGHT IN BY DAUGHTER PER TRIAGE. PT IS A POOR HISTORIAN AND STATES HE WAS BROUGHT IN BY EMS FOR A BROKEN RIGHT ARM. DAUGHTER BROUGHT PT IN FOR URINARY SYMPTOMS.
== END 2022-09-17 19:30 | disposition left against medical advice (07) ==
LOC: ER 12:30
DX: R68.89 Other general symptoms and signs (principal); Z53.21 Procedure and treatment not carried out due to patient leaving prior to being seen by health care provider
CPT/HCPCS: 36415; 80053; 81001; 83690; 85007; 85025

== ENCOUNTER 2024-09-13 06:25 | Emergency (ER) | payer MEDICARE, MEDICAID ==
[~2024-09-13] VITALS: Ht 177.8 cm; Wt 92.0 kg
[2024-09-13 06:27] VITALS: TEMP 98.7
[2024-09-13] MEDS: diltiazem 5mg/ml 5ml inj. IV ONE (07:14)
[2024-09-13] MEDS: magnesium sulf-water 2g/50mL 50 ML IV ONE (07:14)
[2024-09-13] MEDS: HYDROmorphone inj. 0.5 MG/0.5 ML DISP.SYRIN IV ONE (07:14)
[2024-09-13 07:28] LABS: BASOPHILS % (AUTO) 0.2 % (0-1); EOSINOPHILS # (AUTO) 0.1 X10'3 (0-0.9); HEMATOCRIT 38.3 % (42.0-52.0); HEMOGLOBIN 12.4 g/dl (14.0-17.9); LYMPHOCYTES # (AUTO) 0.8 X10'3 (1.1-4.8); LYMPHOCYTES % (AUTO) 7.2 % (21-51); MEAN CORPUSCULAR HEMOGLOBIN 32.5 PG (27.0-31.0); MEAN CORPUSCULAR HGB CONC 32.3 g/dL (33.0-36.5); MEAN CORPUSCULAR VOLUME 100.7 FL (78-98); NEUTROPHILS % (AUTO) 82.6 % (42-75); PLATELET COUNT 166 X10'3 (140-440); RED BLOOD COUNT 3.81 X10'6 (4.70-6.10); RED CELL DISTRIBUTION WIDTH 14.6 % (11.5-14.5); WHITE BLOOD COUNT 10.8 X10'3 (4.5-11.0)
[2024-09-13 07:33] LABS: INR 1.2 INR; PROTHROMBIN TIME 12.2 SECONDS (9.0-12.0)
[2024-09-13 07:37] LABS: ALANINE AMINOTRANSFERASE 12 U/L (12-78); ALBUMIN 2.9 G/DL (3.4-5.0); ALKALINE PHOSPHATASE 27 IU/L (46-116); ANION GAP 0 (8-16); ASPARTATE AMINO TRANSFERASE 16 U/L (10-37); BILIRUBIN,TOTAL 0.5 MG/DL (0.1-1.0); BLOOD UREA NITROGEN 20 MG/DL (7-18); BUN/CREATININE RATIO 33.3 (10.0-20.0); CALCIUM 7.4 MG/DL (8.5-10.1); CHLORIDE 104 MMOL/L (99-107); GLUCOSE 109 MG/DL (70-104); POTASSIUM 3.7 MMOL/L (3.5-5.1); SODIUM 141 MMOL/L (135-145); TOTAL CARBON DIOXIDE 36.7 MMOL/L (24-32); TOTAL PROTEIN 5.7 G/DL (6.4-8.2); eCRCL 105 ML/MIN; eGFR > 90 ML/MIN
[2024-09-13 09:03] VITALS: BP 90/55; PULSE 97; O2SAT 96
[2024-09-13 09:05] VITALS: RESP 18
== END 2024-09-13 11:01 | disposition home or self-care (01) ==
LOC: ER 06:26
DX: S52.592A Other fractures of lower end of left radius, initial encounter for closed fracture (principal); S00.03XA Contusion of scalp, initial encounter; I50.9 Heart failure, unspecified; I48.91 Unspecified atrial fibrillation; J45.909 Unspecified asthma, uncomplicated; J44.9 Chronic obstructive pulmonary disease, unspecified; Z88.6 Allergy status to analgesic agent; Z79.52 Long term (current) use of systemic steroids; Z79.899 Other long term (current) drug therapy; W18.39XA Other fall on same level, initial encounter; Y93.89 Activity, other specified; Y92.89 Other specified places as the place of occurrence of the external cause; Y99.8 Other external cause status
CPT/HCPCS: 29125; 36415; 70450; 73110; 80053; 85025; 85610; 96365; 96375; 99285; A4565; A6449; J1171; J3490

== ENCOUNTER 2024-09-17 09:06 | Emergency (ER) | payer MEDICARE, MEDICAID ==
[~2024-09-17] VITALS: Ht 177.8 cm; Wt 99.0 kg
[2024-09-17 09:12] VITALS: TEMP 98.4
[2024-09-17 10:26] LABS: BASOPHILS % (AUTO) 0.3 % (0-1); EOSINOPHILS # (AUTO) 0.1 X10'3 (0-0.9); EOSINOPHILS % (AUTO) 2.4 % (0-6); HEMATOCRIT 34.1 % (42.0-52.0); LYMPHOCYTES # (AUTO) 0.6 X10'3 (1.1-4.8); MEAN CORPUSCULAR HEMOGLOBIN 32.5 PG (27.0-31.0); MEAN CORPUSCULAR HGB CONC 32.4 g/dL (33.0-36.5); MEAN CORPUSCULAR VOLUME 100.3 FL (78-98); MEAN PLATELET VOLUME 8.8 FL (7.4-10.4); MONOCYTES # (AUTO) 0.9 X10'3 (0-0.9); MONOCYTES % (AUTO) 15.8 % (2-12); NEUTROPHILS # (AUTO) 4.3 X10'3 (1.8-7.7); NEUTROPHILS % (AUTO) 71.5 % (42-75); PLATELET COUNT 203 X10'3 (140-440); RED CELL DISTRIBUTION WIDTH 14.6 % (11.5-14.5)
[2024-09-17 10:33] LABS: ALBUMIN 2.9 G/DL (3.4-5.0); ANION GAP 1 (8-16); BLOOD UREA NITROGEN 32 MG/DL (7-18); CALCIUM 8.2 MG/DL (8.5-10.1); CHLORIDE 98 MMOL/L (99-107); GLUCOSE 105 MG/DL (70-104); POTASSIUM 4.5 MMOL/L (3.5-5.1); SODIUM 140 MMOL/L (135-145); eCRCL 79 ML/MIN; eGFR > 90 ML/MIN
[2024-09-17 10:37] LABS: APTT 33 SECONDS (22-32); INR 1.1 INR; PROTHROMBIN TIME 11.8 SECONDS (9.0-12.0)
[2024-09-17 10:42] LABS: TOTAL CARBON DIOXIDE 41.4 MMOL/L (24-32)
[2024-09-17 11:02] LABS: TOTAL CELLS COUNTED 100
[2024-09-17 11:03] LABS: ELLIPTOCYTES FEW; HYPOCHROMASIA 1+; PLATELET ESTIMATE NORMAL; STOMATOCYTES 3+
[2024-09-17] MEDS: normal saline 1000ML IV soln IVB ONE (12:08)
[2024-09-17] MEDS: normal saline 1000ml 1,000 ML IV ONE (12:08)
[2024-09-17 17:34] VITALS: BP 96/56; PULSE 78; RESP 14; O2SAT 95
== END 2024-09-17 12:39 | disposition home or self-care (01) ==
LOC: ER 09:07
DX: S42.295A Other nondisplaced fracture of upper end of left humerus, initial encounter for closed fracture (principal); S52.502A Unspecified fracture of the lower end of left radius, initial encounter for closed fracture; S52.602A Unspecified fracture of lower end of left ulna, initial encounter for closed fracture; J44.9 Chronic obstructive pulmonary disease, unspecified; I50.9 Heart failure, unspecified; Z88.6 Allergy status to analgesic agent; Z79.01 Long term (current) use of anticoagulants; Z98.890 Other specified postprocedural states; W18.30XA Fall on same level, unspecified, initial encounter; Y93.89 Activity, other specified; Y92.89 Other specified places as the place of occurrence of the external cause; Y99.8 Other external cause status
CPT/HCPCS: 29125; 71045; 73030; 73060; 80048; 85007; 85025; 85610; 85730; 96360; 99285; C1758; J7030